=== PATIENT | male | born 1955 | race Hispanic/Latino ===

== ENCOUNTER 2021-03-25 13:19 | Day surgery (SDC) | payer MEDICARE ==
--- NOTE | 2021-03-25 14:23 | Post Operative Note ---
Date of procedure: 03/25/21 Pre-op diagnosis: urethral stone Post-op diagnosis: same Findings: stone Procedure: cysto laser Anesthesia: GETA Surgeon: MARYLIN JOHNSON Estimated blood loss: minimal Pathology: list (stone) Specimen disposition: to lab Condition: stable Disposition: PACU
--- NOTE | 2021-03-25 14:25 | Discharge Summary ---
Short Stay Discharge Plan Activity: other (no straininbg) Weight Bearing Status: Full Weight Bearing Diet: low fat, low cholesterol, low salt Special Instructions: other (teach contreras care ) Durable Medical Equipment Needed Upon Discharge: other (contreras ) Follow up with: DONG WHIPPLE DO [Primary Care Provider] - 7 Days MARYLIN JOHNSON MD [Staff Physician] - 03/30/21
--- NOTE | 2021-03-25 14:40 | Anesthesia Day of Surgery ---
Anesthesia Day of Surgery - Day of Surgery Patient Examined: Yes Patient H&P Reviewed: Yes Patient is NPO: Yes
[2021-03-25] MEDS ORDERED: propofoL 200 MG/20 ML VIAL IV ONE ×4 (14:43→15:19)
[2021-03-25] MEDS ORDERED: fentaNYL 100 MCG/2 ML INJ ONE (14:44)
--- NOTE | 2021-03-25 14:44 | Anesthesia Consultation ---
Anesthesia Consult and Med Hx Date of service: 03/25/21 - Airway Anesthetic Teeth Evaluation: Good ROM Head & Neck: Adequate Mental/Hyoid Distance: Adequate Mallampati Class: Class I Intubation Access Assessment: Good - Pre-Operative Health Status ASA Pre-Surgery Classification: ASA3 Proposed Anesthetic Plan: General (TIVA) - Pre-Anesthesia Comment Pre-Anesthesia Comments: Pt states inhalational anesthetics cause severe PONV. 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
[2021-03-25] MEDS ORDERED: ceFAZolin/STERILE WATER 2 GM/20 ML SYRINGE IV NR (14:45)
[2021-03-25] MEDS ORDERED: HYDROmorphone 1 MG/1 ML INJ IV PRN (14:45)
[2021-03-25] MEDS ORDERED: ONDANSETRON 4 MG/2 ML INJ IV PRN (15:00)
[2021-03-25] MEDS ORDERED: MIDAZOLAM 2 MG/2 ML INJ IV NR (15:00)
[2021-03-25] MEDS ORDERED: LACTATED RINGERS 1,000 ML IV SCH (15:00)
[2021-03-25] MEDS ORDERED: ePHEDrine SULFATE 50 MG/1 ML INJ ONE (15:18)
[2021-03-25] MEDS ORDERED: WATER FOR IRRIG STERILE 1,500 ML BOTTLE IR ONE (15:46)
[2021-03-25] MEDS ORDERED: WATER FOR IRRIG STERILE 2000 ML IR ONE (15:47)
[2021-03-25] MEDS: HYDROmorphone 1 MG/1 ML INJ IV PRN ×4 (15:55→16:25)
[2021-03-25] MEDS: hydrALAZINE 20 MG/1 ML INJ IV SCH ×2 (16:55→17:50)
--- NOTE | 2021-03-25 17:09 | Post Anesthesia Evaluation ---
- Post Anesthesia Evaluation Patient Participated: Yes Airway Patent: Yes Stable Respiratory Function: Yes Nausea/Vomiting: No Temp > 96.8F: Yes Pain Manageable: Yes Adequeate Hydration: Yes Anesthesia Complications: No Block Receding Appropriately: Not Applicable Patient on Ventilator: No
[2021-03-25] MEDS ORDERED: hydrALAZINE 20 MG/1 ML INJ IV ONE (17:50)
[2021-03-25] MEDS ORDERED: oxyCODONE /ACETAMINOPHEN 5-325MG TAB PO ONE (17:58)
[2021-03-25] MEDS ORDERED: ONDANSETRON 4 MG/2 ML INJ ONE (18:01)
[2021-03-25 19:02] VITALS: BP 137/92
--- NOTE | 2021-03-25 20:17 | Operative Report ---
DATE OF SURGERY: 03/25/2021 PREOPERATIVE DIAGNOSIS: Large urethral stone. POSTOPERATIVE DIAGNOSIS: Large urethral stone. PROCEDURES: Cystoscopy, transposition of stone into the bladder, cystolithotripsy, evacuation of stone. SURGEON: Miguel A Nagel MD. ANESTHESIA: General. FINDINGS: This is a gentleman with pelvic pain and dysuria. He has a stone in his urethra, could not manipulate it out yesterday. He now presents for treatment. DESCRIPTION OF PROCEDURE: The patient was brought to the operating room and placed on the operating table. Following induction of anesthesia, placed in lithotomy position, prepped and draped in the usual sterile fashion. Cystoscopy showed the stone. Once he was relaxed, we were able to push the stone in the bladder. It was way too big to extract. It was lasered with a 500 fiber into about 6 pieces. These were evacuated out with the Velteo evacuator. The bladder neck was open. With this tiny middle lobe, we did not need to do a TURP. At this point, he has 1-2+ trabeculation, but says months ago he was voiding with an excellent flow. The patient tolerated the procedure well. I do not know exactly where the stone originated, but he has passed large stones as well as. His orifices are normal. No retrogrades were needed. He was brought to recovery room with a coude catheter in stable condition. TID: [id number] RECEIPT: [id number] KARENA/AILEEN/LEXI
== END 2021-03-25 18:45 | disposition home or self-care (01) ==
LOC: OR 13:19
PROVIDERS: ATTEND Urology
DX: N21.1 Calculus in urethra (principal); N21.0 Calculus in bladder; I10 Essential (primary) hypertension; Z88.2 Allergy status to sulfonamides; Z79.899 Other long term (current) drug therapy; Z87.891 Personal history of nicotine dependence; Z87.442 Personal history of urinary calculi; Z98.890 Other specified postprocedural states; Z86.73 Personal history of transient ischemic attack (TIA), and cerebral infarction without residual deficits
CPT/HCPCS: 52318; A4217; C1758; C1769; J0360; J0690; J1170; J2250; J2405; J2704; J3010; J7120